=== PATIENT | male | born 1965 | race Caucasian/White ===

== ENCOUNTER 2025-02-08 18:44 | Emergency (ER) | payer OTHER, SELFPAY ==
[2025-02-08 18:36] VITALS: BP 168/90; PULSE 90; TEMP 36.8; O2SAT 97; BMI 23.9
--- NOTE | 2025-02-08 18:51 | ECG_ITS ---
[facility] Test Date: 2025-02-08 Pat Name: ABHAY RODRIGUEZ Department: Room: - Gender: Male Dialysis Nurse: : [id number] Requested By: [id number] Order Number: [id number] Reading MD: HALLEY LAZO M.D. Measurements Intervals [place] Rate: 83 P: 74 MD: 158 QRS: 73 QRSD: 80 T: 65 QT: 370 QTc: 409 Interpretive Statements 1100 Sinus rhythm 9110 normal ECG No previous ECG available for comparison Electronically Signed On 02-10-2025 20:15:58 EST by HALLEY LAZO M.D.
--- NOTE | 2025-02-08 19:08 | ED.GENADUL1 ---
HPI HPI - General Adult General Chief complaint: Recheck/Abnormal Lab/Rx Stated complaint: Clearance Time Seen by Provider: 02/08/25 18:51 Source: patient Mode of arrival: ambulance Limitations: no limitations History of Present Illness HPI narrative: 59-year-old male was brought to the emergency room for medical clearance. Patient was arrested and brought in for medical clearance by [facility]. Patient was saying that he could not be incarcerated due to a known wound to the left buttock. Patient has a wound that is healing by secondary intention at this time it appears clean and dry. No sign of infection patient is not currently febrile Review of Systems ROS Status of ROS 10 or more systems reviewed and unremarkable except as noted in history and below PFSH PFSH Social History Little interest or pleasure in doing things: not at all Feeling down, depressed, or hopeless: not at all Exam Narrative Exam Narrative: All Systems are negative except as noted/marked.All systems reviewed and otherwise negative Nurses note and vital signs reviewed and patient is not hypoxic. General: The patient appears well and in no apparent distress. Patient is resting comfortably on cart. Skin: Warm, dry, no pallor noted. There is no rash noted. Head: Normocephalic, atraumatic Eye: Normal conjunctiva, no drainage, EOMI. PERRL Ears, Nose, Mouth, and Throat: oral mucosa is moist. Nares patent. Mouth without vesicles. Ear canals patent. Tm's without Erythema Cardiovascular: Regular Rate and Rhythm Respiratory: Patient is in no distress, no accessory muscle use, lungs are clear to auscultation, no wheezing, rales or rhonchi Musculoskeletal: Known left gluteal wound currently healing by secondary intention status post I&D. No acute redness or erythema clean no drainage the patient has no evidence of calf tenderness, no pitting edema, symmetrical pulses noted bilaterally Neurological: A&O x4, normal speech Psychiatric: Cooperative Constitutional Vital Signs, click to edit/add: Last Vital Signs Temp 98.2 F 02/08/25 18:36 Pulse 90 02/08/25 18:36 Resp 16 02/08/25 18:36 BP 168/90 H 02/08/25 18:36 Pulse Ox 97 02/08/25 18:36 O2 Del Method Room Air 02/08/25 18:36 Course Vital Signs Vital signs: Vital Signs Temperature 98.2 F 02/08/25 18:36 Pulse Rate 90 02/08/25 18:36 Respiratory Rate 16 02/08/25 18:36 Blood Pressure 168/90 H 02/08/25 18:36 Pulse Oximetry 97 02/08/25 18:36 Oxygen Delivery Method Room Air 02/08/25 18:36 Temperature 98.2 F 02/08/25 18:36 Pulse Rate 90 02/08/25 18:36 Respiratory Rate 16 02/08/25 18:36 Blood Pressure 168/90 H 02/08/25 18:36 Pulse Oximetry 97 02/08/25 18:36 Oxygen Delivery Method Room Air 02/08/25 18:36 Medical Decision Making MDM Narrative Medical decision making narrative: 59-year-old male was brought to the emergency room for medical clearance. Patient was arrested and brought in for medical clearance by [facility] patrol. Patient was saying that he could not be incarcerated due to a known wound to the left buttock. Patient has a wound that is healing by secondary intention at this time it appears clean and dry. No sign of infection patient is not currently febrile Patient was brought here for medical clearance. He is currently medically cleared he does have a history of hypertension as well as a secondary healing wound. We called the pharmacy to which his prescription was filled he should have completed the prescription today. He will prophylactically be placed on Keflex while he is incarcerated also given prescription for losartan. Patient is currently medically clear and can go back with police Differential Diagnosis Differential Diagnosis: Medical clearance Medical Records Medical records reviewed: Yes I reviewed the patient's medical records Lab Data Lab results reviewed: Yes I reviewed the patient's lab results ECG Data Interpretation: 1904 EKG shows normal sinus rhythm with a rate of 83 bpm WI interval 158 ms QRS duration [address] elevation depression, no STEMI Discharge Plan Discharge Chief Complaint: Recheck/Abnormal Lab/Rx Clinical Impression: Medical clearance for incarceration, Encounter for post surgical wound check Patient Disposition: Home, Self-Care Time of Disposition Decision: 19:09 Condition: Good Mode of Transportation: Other Print Language: [place] Instructions: Abscess Incision and Drainage (DC) Additional Instructions: patient is medically clear for incarceration, folow up with physician as scheduled
== END 2025-02-08 19:33 ==
PROVIDERS: Emergency Provider Emergency Medicine
DX: Z02.89 Encounter for other administrative examinations (principal); Z48.89 Encounter for other specified surgical aftercare
CPT/HCPCS: 93005; 99283